=== PATIENT | female | born 1960 | race American Indian/Alaskan Native ===

== ENCOUNTER 2017-11-04 11:13 | Outpatient (CLI) | payer OTHER ==
--- NOTE | 2017-11-04 16:48 | Mammography Report ---
BILATERAL DIGITAL SCREENING MAMMOGRAM with CAD: 11/04/17 CLINICAL: Routine screening. COMPARISON:None available. However, a prior mammogram was apparently done at [facility] (Formerly [facility]3]. FINDINGS: The breasts are heterogeneously dense, which may obscure small masses. A right asymmetry on the CC view and a left asymmetry with architectural distortion on the CC view require comparison with prior mammogram or additional imaging. No suspicious calcifications. IMPRESSION: Bilateral asymmetries requiring further evaluation. BI-RADS CATEGORY: 0 -- Additional Evaluation Required RECOMMENDATION: Comparison with a previous mammogram. We will attempt to obtain a prior mammogram. If we do not obtain a prior mammogram for comparison within 30 days, a revised report will be issued recommending a recall for additional imaging. Please be advised that the patient should not schedule an appointment for return until adequate time (at least 2 weeks) has passed for us to obtain the prior mammogram. ACR BI-RADS MAMMOGRAPHIC CODES: 0 = Needs additional imaging evaluation; 1 = Negative; 2 = Benign; 3 = Probably benign; 4 = Suspicious; 5 = Malignant; 6 = Known biopsy-proven malignancy COMMENT: 1. Dense breast tissue, i.e., adenosis, fibrocystic changes, etc., may obscure an underlying neoplasm. 2. Approximately 10% of cancers are not detected with mammography. 3. A negative mammography report should not delay biopsy if a clinically suspicious mass is present. COMMENT: Patient follow-up letters are generated via our [employer] application.
== END 2017-11-04 11:14 | disposition home or self-care (01) ==
LOC: SPVWC 11:13
PROVIDERS: ATTEND General Practice
DX: Z12.31 Encounter for screening mammogram for malignant neoplasm of breast (principal); E11.9 Type 2 diabetes mellitus without complications; I10 Essential (primary) hypertension; E78.00 Pure hypercholesterolemia, unspecified
CPT/HCPCS: 77067

== ENCOUNTER 2018-01-14 10:15 | Outpatient (CLI) | payer OTHER ==
--- NOTE | 2018-01-14 14:41 | Ultrasound Report ---
BILATERAL DIGITAL DIAGNOSTIC MAMMOGRAM and BILATERAL BREAST ULTRASOUND: 01/14/18 10:15:00 CLINICAL: Recalled for bilateral asymmetries. COMPARISON:11/04/17 screening FINDINGS: Bilateral true lateral and bilateral spot magnification views were performed. A subtle low density right inner asymmetry persists on the CC mag view but is not identified on other views.Partial effacement of a left focal asymmetry 6 o'clock in the left breast. Ultrasound of the right breast (including all four quadrants and the retroareolar area) was performed and demonstrated no mass or cyst to correlate with the mammographic asymmetry. The technologist measured a vague hypoechoic area at 3 o'clock 3 cm from the nipple that I could not detect an abnormality when I scanned this area. 2 benign cyst at 5 o'clock 5 cm from the nipple measured 5 x 2 x 2 mm and 5 x 2 x 4 mm. Ultrasound of (including all four quadrants and the retroareolar area) was performed and demonstrated no mass, cyst or shadowing to definitely correlate with the mammographic asymmetry. A benign cystic cluster at 7 o'clock 3 cm from the nipple measures 7 x 3 x 6 mm and is not correlate well with the mammographic density. A benign cyst at 2 o'clock 6 cm from nipple measures 5 x 3 x 5 mm and a short prominent duct at 3 o'clock 5 cm from the nipple. IMPRESSION: Probably benign mammographic asymmetries. Recommend six month followup bilateral diagnostic mammogram and bilateral breast ultrasound if needed. BI-RADS CATEGORY: 3 - - Probably Benign ACR BI-RADS MAMMOGRAPHIC CODES: 0 = Needs additional imaging evaluation; 1 = Negative; 2 = Benign; 3 = Probably benign; 4 = Suspicious; 5 = Malignant; 6 = Known biopsy-proven malignancy COMMENT: 1. Dense breast tissue, i.e., adenosis, fibrocystic changes, etc., may obscure an underlying neoplasm. 2. Approximately 10% of cancers are not detected with mammography. 3. A negative mammography report should not delay biopsy if a clinically suspicious mass is present. COMMENT: Patient follow-up letters are generated via our [employer] application.
== END 2018-01-14 10:16 | disposition home or self-care (01) ==
LOC: SPVWC 10:15
PROVIDERS: ATTEND Hospitalist
DX: N60.01 Solitary cyst of right breast (principal); N60.02 Solitary cyst of left breast; N64.89 Other specified disorders of breast; R92.2 Inconclusive mammogram
CPT/HCPCS: 77066